=== PATIENT | female | born 1995 | race Hispanic/Latino ===

== ENCOUNTER 2024-11-28 21:38 | Emergency (ER) | payer SELFPAY ==
[~2024-11-28] VITALS: Ht 144.8 cm; Wt 68.0 kg
[2024-11-28 21:46] VITALS: PULSE 106; RESP 20; TEMP 98.6
[2024-11-28] MEDS ORDERED: KETOROLAC TROMETHAMINE 60 MG/2 ML VIAL IM STA (21:46)
[2024-11-28] MEDS: ONDANSETRON HCL 4 MG ORAL DISINTEGRATING TAB PO STA (21:56)
[2024-11-28 22:35] LABS: BILIRUBIN,URINE NEGATIVE (NEGATIVE); CLARITY,URINE CLOUDY (CLEAR); COLOR,URINE YELLOW (YELLOW); GLUCOSE, URINE 1+ (NEGATIVE); KETONES,URINE NEGATIVE (NEGATIVE); LEUKOCYTE ESTERASE ,URINE LARGE (NEGATIVE); NITRITE,URINE POSITIVE (NEGATIVE); PH,URINE 7 (5 - 7); PROTEIN,URINE DIPSTICK 2+ (NEGATIVE); URINE UROBILINOGEN 0.2 mg/dL (0.2 - 1)
[2024-11-28 22:49] LABS: BACTERIA,URINE MANY /HPF; EPITHELIAL CELLS,URINE MODERATE /LPF; WBC,URINE (MAN) >50 /HPF (0-5)
[2024-11-28] MEDS ORDERED: BACTRIM 400-801 EACH PO (23:21)
[2024-11-28 23:26] VITALS: BP 122/60; PULSE 81; RESP 16; TEMP 98.9; O2SAT 99
== END 2024-11-28 23:32 | disposition home or self-care (01) ==
LOC: ER 21:48
DX: R30.0 Dysuria (principal); N39.0 Urinary tract infection, site not specified; R31.9 Hematuria, unspecified; R00.0 Tachycardia, unspecified; R11.2 Nausea with vomiting, unspecified
CPT/HCPCS: 74176; 81001; 81025; 99283; Q0162